=== PATIENT | male | born 1970 | race African-American/Black ===

== ENCOUNTER 2016-08-22 23:06 | Emergency (ER) | payer OTHER ==
[2016-08-22 23:13] VITALS: BP 154/107; PULSE 89; TEMP 98.4; BMI 32.1
--- NOTE | 2016-08-22 23:13 | PDOC ---
History of Present Illness - General Chief Complaint: Pain, Acute Stated Complaint: SORE THROAT X 2 WEEKS Time Seen by Provider: 08/22/16 23:12 History Source: Patient Exam Limitations: No Limitations - History of Present Illness Initial Comments: 45 yo M history HTN, anxiety presents with 2 weeks of throat irritation, now with hacking cough for the past 2 days. He states that he has not had any fever. He gets pain at the center of his chest when he has fits of coughing. He is producing yellow phlegm. No SOB. Past History - Past Medical History Allergies/Adverse Reactions: Allergies Allergy/AdvReac Type Severity Reaction Status Date / Time No Known Allergies Allergy Verified 08/22/16 23:07 Home Medications: Ambulatory Orders Buspirone HCl [Buspar -] 1 tab PO DAILY 08/01/15 Lisinopril 5 mg PO DAILY 08/01/15 Azithromycin [Zithromax 250mg Tablets -] 250 mg PO UTDICT #6 tab 08/22/16 HTN: Yes Psychiatric Problems: Yes (ANXIETY) - Psycho/Social/Smoking Cessation Hx Anxiety: No Suicidal Ideation: No Smoking History: Never smoked Have you smoked in the past 12 months: No Hx Alcohol Use: No Drug/Substance Use Hx: No Substance Use Type: None Review of Systems - Review of Systems Able to Perform ROS?: Yes Comments:: GENERAL/CONSTITUTIONAL: No fever or chills. No weakness. HEAD, EYES, EARS, NOSE AND THROAT: No change in vision. No ear pain or discharge. +Sore throat. CARDIOVASCULAR: No chest pain or shortness of breath. RESPIRATORY: +Cough. No wheezing or hemoptysis. GASTROINTESTINAL: No nausea, vomiting, diarrhea or constipation. GENITOURINARY: No dysuria, frequency, or change in urination. MUSCULOSKELETAL: No joint or muscle swelling or pain. No neck or back pain. SKIN: No rash NEUROLOGIC: No headache, vertigo, loss of consciousness, or change in strength/ sensation. ENDOCRINE: No increased thirst. No abnormal weight change. HEMATOLOGIC/LYMPHATIC: No anemia, easy bleeding, or history of blood clots. ALLERGIC/IMMUNOLOGIC: No hives or skin allergy. *Physical Exam - Physical Exam Comments: GENERAL: Awake, alert, and fully oriented, in no acute distress HEAD: No signs of trauma EYES: PERRLA, EOMI, sclera anicteric, conjunctiva clear ENT: Auricles normal inspection, hearing grossly normal, nares patent, oropharynx clear without exudates. Moist mucosa NECK: Normal ROM, supple, no lymphadenopathy, JVD, or masses LUNGS: Breath sounds equal, clear to auscultation bilaterally. No wheezes, and no crackles. Intermittent fits of loose, hacking cough. HEART: Regular rate and rhythm, normal S1 and S2, no murmurs, rubs or gallops ABDOMEN: Soft, nontender, normoactive bowel sounds. No guarding, no rebound. No masses EXTREMITIES: Normal range of motion, no edema. No clubbing or cyanosis. No cords, erythema, or tenderness NEUROLOGICAL: Cranial nerves II through XII grossly intact. Normal speech, normal gait SKIN: Warm, Dry, normal turgor, no rashes or lesions noted. *DC/Admit/Observation/Transfer Diagnosis at time of Disposition: Bronchitis - Discharge Dispostion Disposition: HOME Condition at time of disposition: Stable Admit: No - Prescriptions Prescriptions: Azithromycin [Zithromax 250mg Tablets -] 250 mg PO UTDICT #6 tab - Patient Instructions Printed Discharge Instructions: DI for Acute Bronchitis
== END 2016-08-22 23:30 | disposition home or self-care (01) ==
LOC: FER 23:06
DX: J40 Bronchitis, not specified as acute or chronic (principal); I10 Essential (primary) hypertension; F41.9 Anxiety disorder, unspecified
CPT/HCPCS: 99281-25

== ENCOUNTER 2018-02-12 20:39 | Emergency (ER) | payer OTHER ==
[2018-02-12 20:53] VITALS: BP 139/94; PULSE 116; TEMP 102.1; BMI 29.8
--- NOTE | 2018-02-12 21:00 | PDOC ---
History of Present Illness - History of Present Illness Initial Comments: 02/12/18 21:51 Patient is a 47 year old male with a significant past medical history of who presents to the ED with complaints of flu like symptoms that began x1 week ago. Patient reports experiencing chronic cough as well as associate symptoms of chills, general body aches, and elevated fever over time, prompting him to come into the ED for further evaluation. Patient reports not getting his flu shot this year, as well as taking a dose of amoxicillin prior to come into the ED with no relief. Denies chest pain, Sob. Denies nausea, vomiting. Denies fevers, chills. Denies contact with sick individuals, out of state travelling. Denies constipation, diarrhea. Denies dysuria, hematuria. Denies trauma to affected area. Denies any other symptoms. Allergies: None Social history: No smoking. No alcohol. No illicit drugs. Surgical history: None PMD: None Adult ROS General: +Fever. +Chills. +General body ache. no weakness, no weight loss HEENT: No change in vision. No sore throat, No ear pain Cardiovascular: No chest pain or shortness of breath Respiratory:+Coughing. No wheezing. Gastrointestinal: No nausea, vomiting, diarrhea or constipation, No rectal bleeding Genitourinary: No dysuria, hematuria, or frequency Musculoskeletal: No joint or muscle pain or swelling Neurologic: No headache, vertigo, dizziness or loss of consciousness Psychiatric: No depression Skin: No rashes or easy bruising Endocrine: No increased thirst or abnormal weight change Allergic: No skin or latex allergy All other systems reviewed and normal Adult PE General: Well-nourished well-developed individual, no acute distress HEENT: Throat: Normal, tonsils normal, no erythema or exudate Neck: Supple, no meningeal signs, no lymphadenopathy Eyes:Pupils equal reactive and round, extraocular motion intact Chest: Nontender to palpation Cardiac: S1-S2 normal, regular rate and rhythm, no murmurs rubs or gallops Respiratory: +Coarse breath sounds bilateral bases. Extremities: Warm, dry, no cyanosis, clubbing, or edema Skin: No rashes Neuro: Alert and oriented x3, nonfocal exam, grossly intact, normal gait Psych: Normal mood and affect <Khai Tidwell - Last Filed: 02/12/18 21:50> - General History Source: Patient Exam Limitations: No Limitations - History of Present Illness Initial Comments: 02/12/18 21:45 A portion of this note was documented by scribe services under my direction. I have reviewed the details of the note, within reason, and agree with the documentation with the following case summary and management plan written by me. Patient treated in the ED. Nursing notes are reviewed and incorporated into the medical decision-making. Vital signs reviewed. Assessment and plan: This is a 47-year-old male who comes in complaining of fever, headache, body ache, cough, congestion 3 days. Patient did not get his flu shot. On my exam patient did have some coarse breath sounds bilateral bases right greater than left Chest x-ray does show possible peribronchial thickening questionable early bronchitis. Patient started on azithromycin given first dose here and [facility] to contact the course. Patient discharged <Jessica Garcia I - Last Filed: 02/12/18 22:57> - General Chief Complaint: Respiratory Stated Complaint: COUGH/FEVER Time Seen by Provider: 02/12/18 20:46 Past History <Khai Tidwell - Last Filed: 02/12/18 21:50> - Past Medical History COPD: No HTN: Yes Psychiatric Problems: Yes (ANXIETY) - Suicide/Smoking/Psychosocial Hx Smoking History: Never smoked Have you smoked in the past 12 months: No Information on smoking cessation initiated: No Hx Alcohol Use: No Drug/Substance Use Hx: No Substance Use Type: None <Jessica Garcia I - Last Filed: 02/12/18 22:57> - Past Medical History Allergies/Adverse Reactions: Allergies Allergy/AdvReac Type Severity Reaction Status Date / Time No Known Allergies Allergy Verified 02/12/18 20:40 Home Medications: Ambulatory Orders Lisinopril 5 mg PO DAILY 08/01/15 Azithromycin [Zithromax 250mg Tablets -] 250 mg PO DAILY #4 tab 02/12/18 *Physical Exam - Vital Signs Last Vital Signs Temp Pulse Resp BP Pulse Ox 102.1 F H 116 H 18 139/94 97 02/12/18 20:49 02/12/18 20:49 02/12/18 20:49 02/12/18 20:49 02/12/18 20:49 <Khai Tidwell - Last Filed: 02/12/18 21:50> - Vital Signs Last Vital Signs Temp Pulse Resp BP Pulse Ox 102.1 F H 116 H 18 139/94 97 02/12/18 20:49 02/12/18 20:49 02/12/18 20:49 02/12/18 20:49 02/12/18 20:49 <Jessica Garcia I - Last Filed: 02/12/18 22:57> Moderate Sedation - Procedure Monitoring Vital Signs: Procedure Monitoring Vital Signs Temperature 102.1 F H 02/12/18 20:49 Pulse Rate 116 H 02/12/18 20:49 Respiratory Rate 18 02/12/18 20:49 Blood Pressure 139/94 02/12/18 20:49 O2 Sat by Pulse Oximetry (%) 97 02/12/18 20:49 <Khai Tidwell - Last Filed: 02/12/18 21:50> - Procedure Monitoring Vital Signs: Procedure Monitoring Vital Signs Temperature 102.1 F H 02/12/18 20:49 Pulse Rate 116 H 02/12/18 20:49 Respiratory Rate 18 02/12/18 20:49 Blood Pressure 139/94 02/12/18 20:49 O2 Sat by Pulse Oximetry (%) 97 02/12/18 20:49 <Jessica Garcia I - Last Filed: 02/12/18 22:57> ED Treatment Course - Medications Given in the ED: ED Medications Discontinued Medications Generic Name Dose Route Start Last Admin Trade Name Freq PRN Reason Stop Dose Admin Acetaminophen 1,000 mg 02/12/18 21:14 02/12/18 21:38 Tylenol - PO 02/12/18 21:15 1,000 mg ONCE ONE Administration <Khai Tidwell - Last Filed: 02/12/18 21:50> *DC/Admit/Observation/Transfer <Khai Tidwell - Last Filed: 02/12/18 21:50> - Discharge Dispostion Decision to Admit order: No <Jessica Garcia I - Last Filed: 02/12/18 22:57> Diagnosis at time of Disposition: Bronchitis, Influenza A Fever Qualifiers: Fever type: unspecified Qualified Code(s): R50.9 - Fever, unspecified - Discharge Dispostion Disposition: HOME Condition at time of disposition: Stable - Prescriptions Prescriptions: Azithromycin [Zithromax 250mg Tablets -] 250 mg PO DAILY #4 tab - Patient Instructions Additional Instructions: Take azithromycin 1 tablet a day for the next 4 days. He was given a first dose here in the emergency room. Return to the emergency department immediately with ANY new, persistent or worsening symptoms. Continue any medications as previously prescribed by your physician. You should follow up with your primary doctor as soon as possible regarding today's emergency department visit. . Please make sure your doctor reviews the results of your emergency evaluation. Thank you for coming to the Emergency Department today for your care. It was a pleasure to see you today. Please note that your evaluation is INCOMPLETE until you follow-up with your doctor.
[2018-02-12] MEDS ORDERED: ACETAMINOPHEN 500 MG TABLET (FP) PO ONE (21:14)
[2018-02-12] MEDS ORDERED: ACETAMINOPHEN 500 MG TABLET (FP) ONE (21:36)
[2018-02-12] MEDS ORDERED: AZITHROMYCIN 250 MG TABLET PO ONE (21:44)
[2018-02-12] MEDS ORDERED: AZITHROMYCIN 250 MG TABLET ONE (21:49)
== END 2018-02-12 22:02 | disposition home or self-care (01) ==
LOC: FER 20:39
DX: J40 Bronchitis, not specified as acute or chronic (principal); J09.X2 Influenza due to identified novel influenza A virus with other respiratory manifestations; R50.9 Fever, unspecified
CPT/HCPCS: 71046-TC-FY; 87804; 99281-25

== ENCOUNTER 2022-02-03 13:12 | Emergency (ER) | payer OTHER ==
[2022-02-03 13:29] VITALS: RESP 18; TEMP 97.9; BMI 34.0
[2022-02-03] MEDS ORDERED: ACETAMINOPHEN 500 MG TABLET (FP) PO ONE (13:40)
[2022-02-03] MEDS ORDERED: ACETAMINOPHEN 325 MG TABLET (FP) ONE (13:58)
[2022-02-03 16:06] VITALS: BP 142/76; PULSE 79
== END 2022-02-03 16:09 | disposition home or self-care (01) ==
LOC: FER 13:12
DX: R10.2 Pelvic and perineal pain (principal); N50.3 Cyst of epididymis; N43.3 Hydrocele, unspecified
CPT/HCPCS: 76870-TC; 76882-TC-RT-FY; 81003; 87086; 99284-25